=== PATIENT | male | born 1975 | race Caucasian/White ===

== ENCOUNTER 2018-06-08 08:42 | Emergency (ER) | payer OTHER ==
[2018-06-08] MEDS: HYDROCODONE/APAP (5/325) TAB PO (09:09)
== END 2018-06-08 10:23 | disposition home or self-care (01) ==
LOC: FTE 08:42
DX: S09.90XA Unspecified injury of head, initial encounter (principal); S39.92XA Unspecified injury of lower back, initial encounter; F17.210 Nicotine dependence, cigarettes, uncomplicated; R51 Headache; W01.0XXA Fall on same level from slipping, tripping and stumbling without subsequent striking against object, initial encounter; Y92.009 Unspecified place in unspecified non-institutional (private) residence as the place of occurrence of the external cause
CPT/HCPCS: 70450; 72072; 72100; 99284-25